=== PATIENT | female | born 1990 | race Hispanic/Latino ===

== ENCOUNTER 2024-04-19 18:16 | Emergency (ER) | payer BC ==
[~2024-04-19] VITALS: Ht 157.5 cm; Wt 72.6 kg
[2024-04-19 20:53] VITALS: PULSE 70; RESP 16; TEMP 98.6; O2SAT 100
== END 2024-04-19 20:53 | disposition home or self-care (01) ==
LOC: ER 18:56
DX: S93.491A Sprain of other ligament of right ankle, initial encounter (principal); W01.0XXA Fall on same level from slipping, tripping and stumbling without subsequent striking against object, initial encounter; Y93.E5 Activity, floor mopping and cleaning; Y92.89 Other specified places as the place of occurrence of the external cause
CPT/HCPCS: 99284